=== PATIENT | female | born 1960 | race Two or more races ===

== ENCOUNTER 2018-07-24 08:20 | Outpatient (CLI) | payer OTHER ==
[~2018-07-24 08:20] MED LIST: CRESTOR10 MG; CRESTOR5 MG; LEVOXYL125 MCG; METOPROLOL SUCC25 MG; PAXIL CR25 MG; PAXIL10 MG/5 ML; PAXIL20 MG; TOPROL XL25 M1; VISTARIL50 MG PO
== END 2018-07-24 08:34 | disposition home or self-care (01) ==
LOC: MAMO-SONO 08:20
DX: Z12.31 Encounter for screening mammogram for malignant neoplasm of breast (principal); N64.89 Other specified disorders of breast

== ENCOUNTER 2018-10-16 06:46 | Emergency (ER) | payer OTHER ==
[~2018-10-16] VITALS: Ht 167.6 cm; Wt 97.5 kg
== END 2018-10-16 09:00 | disposition home or self-care (01) ==
LOC: ER 06:46
DX: K29.70 Gastritis, unspecified, without bleeding (principal)

== ENCOUNTER → 2019-04-19 | Outpatient (CLI) | payer OTHER | END | disposition home or self-care (01) | LOC: MAMO-SONO 08:15 | DX: N60.11 Diffuse cystic mastopathy of right breast (principal); E07.1 Dyshormogenetic goiter ==

== ENCOUNTER 2020-03-21 14:29 | Outpatient (CLI) | payer OTHER | END 2020-03-21 15:00 | disposition home or self-care (01) | LOC: EKG 14:29 | PROVIDERS: ATTEND Internal Medicine | DX: I10 Essential (primary) hypertension (principal) ==

== ENCOUNTER 2020-10-15 07:32 | Outpatient (CLI) | payer OTHER | END 2020-10-15 07:51 | disposition home or self-care (01) | LOC: MAMO-SONO 07:32 | PROVIDERS: ATTEND Obstetrics & Gynecology | DX: E03.8 Other specified hypothyroidism (principal); R92.0 Mammographic microcalcification found on diagnostic imaging of breast; N60.11 Diffuse cystic mastopathy of right breast ==

== ENCOUNTER 2021-12-24 09:54 | Outpatient (CLI) | payer OTHER | END 2021-12-24 09:56 | disposition home or self-care (01) | LOC: LAB 09:54 | PROVIDERS: ATTEND Psychiatry & Neurology Psychiatry | DX: R07.9 Chest pain, unspecified (principal); I10 Essential (primary) hypertension ==

== ENCOUNTER 2021-12-24 10:13 | Outpatient (CLI) | payer OTHER | END 2021-12-24 10:25 | disposition home or self-care (01) | LOC: RAD 10:13 | PROVIDERS: ATTEND Internal Medicine | DX: M25.512 Pain in left shoulder (principal) ==

== ENCOUNTER 2023-04-27 15:02 | Outpatient (CLI) | payer OTHER | END 2023-04-27 15:09 | disposition home or self-care (01) | LOC: RAD 15:02 | DX: M99.01 Segmental and somatic dysfunction of cervical region (principal); M99.02 Segmental and somatic dysfunction of thoracic region; M99.03 Segmental and somatic dysfunction of lumbar region; M99.04 Segmental and somatic dysfunction of sacral region; M99.05 Segmental and somatic dysfunction of pelvic region ==

== ENCOUNTER 2023-06-07 14:12 | Outpatient (CLI) | payer OTHER | END 2023-06-07 14:50 | disposition home or self-care (01) | LOC: MAMO-SONO 14:12 | PROVIDERS: ATTEND Obstetrics & Gynecology | DX: N60.11 Diffuse cystic mastopathy of right breast (principal); Z12.31 Encounter for screening mammogram for malignant neoplasm of breast; E04.8 Other specified nontoxic goiter ==

== ENCOUNTER 2023-10-14 09:33 | Outpatient (CLI) | payer OTHER | END 2023-10-14 09:43 | disposition home or self-care (01) | LOC: TOM 09:33 | PROVIDERS: ATTEND Internal Medicine | DX: R31.9 Hematuria, unspecified (principal) ==

== ENCOUNTER 2024-12-27 13:42 | Outpatient (CLI) | payer OTHER | END 2024-12-27 13:50 | disposition home or self-care (01) | LOC: MAMO-SONO 13:42 | PROVIDERS: ATTEND Obstetrics & Gynecology | DX: N60.11 Diffuse cystic mastopathy of right breast (principal) ==

== ENCOUNTER 2025-04-27 09:59 | Outpatient (CLI) | payer OTHER ==
[2025-04-27 12:02] LABS: ALT/SGPT 24.0 U/L (12-78); AST/SGOT 14.0 U/L (15-37); CHOL HDL RATIO 3.0 (0-5.0); FREE TRIODOTIRONINE 1.8 pg/ml (2.18-3.98); HDL 55.0 mg/dl (40-60); LDL 92.0 mg/dl (0-130); T4 FREE 1.04 NG/ML (0.76-1.46); TSH 0.84 uIU/mL (0.358-3.74); VLDL 16.0 (0-39)
== END 2025-04-27 10:18 | disposition home or self-care (01) ==
LOC: LAB 09:59
PROVIDERS: ATTEND Specialist
DX: I10 Essential (primary) hypertension (principal); E78.5 Hyperlipidemia, unspecified

== ENCOUNTER 2025-05-22 08:30 | Outpatient (CLI) | payer OTHER | END 2025-05-22 08:42 | disposition home or self-care (01) | LOC: SONOGRAMA 08:30 | PROVIDERS: ATTEND Internal Medicine Gastroenterology | DX: Q44.6 Cystic disease of liver (principal); E04.1 Nontoxic single thyroid nodule ==